=== PATIENT | female | born 1955 | race Native Hawaiian/Other Pacific Islander ===

== ENCOUNTER 2022-04-27 09:10 | Outpatient (CLI) | payer OTHER, MEDICARE | END 2022-04-27 18:57 | disposition home or self-care (01) | LOC: MRI 09:10 | PROVIDERS: ATTEND Internal Medicine | DX: M54.16 Radiculopathy, lumbar region (principal); M54.14 Radiculopathy, thoracic region ==

== ENCOUNTER 2022-09-11 09:10 | Outpatient (CLI) | payer OTHER, MEDICARE | END 2022-09-11 19:20 | disposition home or self-care (01) | LOC: CT 09:10 | PROVIDERS: ATTEND Physician Assistant | DX: R10.84 Generalized abdominal pain (principal); R63.4 Abnormal weight loss; R63.0 Anorexia; R07.89 Other chest pain; M25.511 Pain in right shoulder | CPT/HCPCS: Q9963 ==